=== PATIENT | female | born 1975 | race Caucasian/White ===

== ENCOUNTER 2018-06-16 19:26 | Emergency (ER) | payer SELFPAY ==
[~2018-06-16] VITALS: Ht 154.9 cm; Wt 63.5 kg
[2018-06-16 19:53] VITALS: BP 112/58
--- NOTE | 2018-06-16 23:03 | NUR ---
PATIENT LEFT WITHOUT BEING SEEN BY DR. LOPEZ. PT CALLED X3. NO FURTHER CARE PROVIDED FOR PATIENT.
== END 2018-06-16 22:45 | disposition left against medical advice (07) ==
LOC: MED 19:26
DX: R11.2 Nausea with vomiting, unspecified (principal); R19.7 Diarrhea, unspecified; Z53.21 Procedure and treatment not carried out due to patient leaving prior to being seen by health care provider
CPT/HCPCS: 36415; 81002; 81025; 87804; 99281; 99283